=== PATIENT | male | born 1995 | race Two or more races ===

== ENCOUNTER 2017-09-20 07:45 | Emergency (ER) | payer MEDICAID ==
[~2017-09-20] VITALS: Ht 177.8 cm; Wt 106.1 kg
--- NOTE | 2017-09-20 08:05 | NUR ---
DR. LAM AT BEDSIDE FOR MSE.
[2017-09-20] MEDS ORDERED: IV NORMAL SALINE 1000 ML BAG IV ONE (08:15)
[2017-09-20] MEDS ORDERED: METOCLOPRAMIDE HCL 10 MG/2 ML VIAL IV ONE (08:15)
[2017-09-20] MEDS ORDERED: KETOROLAC TROMETHAMINE 15 MG INJ IV ONE (08:15)
--- NOTE | 2017-09-20 08:25 | NUR ---
BLOOD DRAWN AND URINE SAMPLE GIVEN TO LAB.
[2017-09-20] MEDS ORDERED: KETOROLAC TROMETHAMINE 15 MG INJ ONE (08:29)
[2017-09-20] MEDS ORDERED: METOCLOPRAMIDE HCL 10 MG/2 ML VIAL ONE (08:30)
[2017-09-20 08:32] LABS: BASOPHILS % (AUTO) 0.9 % (0.0-2.0); EOSINOPHILS # (AUTO) 0.2 K/uL (0.0-0.7); EOSINOPHILS % (AUTO) 3.7 % (0.0-7.0); HEMOGLOBIN 15.4 g/dL (12.5-16.3); LYMPHOCYTES # (AUTO) 1.6 K/uL (20.0-40.0); LYMPHOCYTES % (AUTO) 28.5 % (20.5-51.5); MEAN CORPUSCULAR HEMOGLOBIN 29.6 uug (23.8-33.4); MEAN CORPUSCULAR HGB CONC 34 g/dL (32.5-36.3); MEAN CORPUSCULAR VOLUME 86.6 fL (73.0-96.2); MONOCYTES # (AUTO) 0.6 K/uL (2.0-10.0); MONOCYTES % (AUTO) 10.2 % (0.0-11.0); NEUTROPHILS # (AUTO) 3.2 K/uL (1.8-8.9); NEUTROPHILS % (AUTO) 56.7 % (38.5-71.5); PLATELET COUNT (AUTO) 231 K/uL (152-348); WHITE BLOOD COUNT (AUTO) 5.6 K/uL (3.6-10.2)
[2017-09-20 08:34] LABS: *BILIRUBIN,URIN NEGATIVE (NEGATIVE); *BLOOD, URINE NEGATIVE (NEGATIVE); *CLARITY,URINE CLOUDY (CLEAR); *COLOR,URINE YELLOW (YELLOW); *KETONES,URINE NEGATIVE (NEGATIVE); *PROTEIN,URINE NEGATIVE (NEGATIVE); *UROBILINOGEN,URINE 0.2 E.U./dl (NORMAL); LEUKOCYTE ESTERASE ,URINE NEGATIVE (NEGATIVE); NITRITE, URINE NEGATIVE (NEGATIVE); PH,URINE 7.5 (5.0-8.0); UGLUCOSE NEGATIVE (NEGATIVE)
[2017-09-20 08:45] LABS: BILIRUBIN,DIRECT 0.1 mg/dL (0.0-0.2); BILIRUBIN,TOTAL 0.2 mg/dL (0.2-1.0); CREATININE 0.9 mg/dL (0.6-1.3); POTASSIUM 5.1 mmol/L (3.5-5.1); TOTAL PROTEIN, SERUM 8.1 g/dL (6.4-8.2)
--- NOTE | 2017-09-20 08:47 | NUR ---
PT RESTING COMFORTABLY. AWAITING TEST RESULTS.
[2017-09-20 08:49] LABS: BACTERIA,URINE MODERATE /HPF (NONE SEEN); URINE AMORPHOUS PHOSPHATES MANY /HPF; WBC,URINE 0-3 /HPF (0-3)
--- NOTE | 2017-09-20 09:39 | NUR ---
Patient discharged to home in stable conditon. Written and verbal after care instructions given. Patient verbalizes understanding of instructions.PT WALKS IN STADY GAIT, DENIES ABDOMINAL PAIN AND N/V. PT WIT MOTHER
[2017-09-20 09:40] VITALS: BP 122/79
== END 2017-09-20 09:45 | disposition home or self-care (01) ==
LOC: ER 07:45
DX: R11.2 Nausea with vomiting, unspecified (principal); R19.7 Diarrhea, unspecified; F17.210 Nicotine dependence, cigarettes, uncomplicated; F12.10 Cannabis abuse, uncomplicated
CPT/HCPCS: 36415; 70030-TC; 83690; 85025; A4663; J1885; J2765; J7030

== ENCOUNTER 2017-09-22 02:54 | Emergency (ER) | payer MEDICAID ==
[~2017-09-22] VITALS: Ht 177.8 cm; Wt 90.7 kg
--- NOTE | 2017-09-22 03:14 | NUR ---
DR. SAUCEDO AT BEDSIDE FOR MSE.
[2017-09-22] MEDS ORDERED: ONDANSETRON 4 MG/2 ML VIAL IV ONE (03:30)
[2017-09-22] MEDS ORDERED: ONDANSETRON 4 MG/2 ML VIAL ONE (03:30)
[2017-09-22] MEDS ORDERED: IV NORMAL SALINE 1000 ML BAG IV ONE (03:30)
[2017-09-22] MEDS ORDERED: KETOROLAC TROMETHAMINE 15 MG INJ IVP ONE (03:45)
[2017-09-22 03:55] LABS: BASOPHILS % (AUTO) 0.5 % (0.0-2.0); EOSINOPHILS % (AUTO) 0.4 % (0.0-7.0); HEMATOCRIT 44.1 % (36.7-47.1); HEMOGLOBIN 15.1 g/dL (12.5-16.3); LYMPHOCYTES # (AUTO) 2.2 K/uL (20.0-40.0); LYMPHOCYTES % (AUTO) 24.3 % (20.5-51.5); MEAN CORPUSCULAR HEMOGLOBIN 29.7 uug (23.8-33.4); MEAN CORPUSCULAR HGB CONC 34 g/dL (32.5-36.3); MEAN CORPUSCULAR VOLUME 86.8 fL (73.0-96.2); MONOCYTES # (AUTO) 0.8 K/uL (2.0-10.0); MONOCYTES % (AUTO) 8.7 % (0.0-11.0); NEUTROPHILS % (AUTO) 66.1 % (38.5-71.5); PLATELET COUNT (AUTO) 246 K/uL (152-348); RED BLOOD CELL COUNT(AUTO) 5.08 MIL/uL (4.06-5.63)
[2017-09-22 03:59] LABS: CREATININE 0.9 mg/dL (0.6-1.3); POTASSIUM 3.8 mmol/L (3.5-5.1)
[2017-09-22 04:01] LABS: ETHANOL < 3 MG/DL (0-0)
[2017-09-22 04:04] LABS: BILIRUBIN,DIRECT 0.1 mg/dL (0.0-0.2); BILIRUBIN,TOTAL 0.4 mg/dL (0.2-1.0); TOTAL PROTEIN, SERUM 8.4 g/dL (6.4-8.2)
[2017-09-22] MEDS ORDERED: KETOROLAC TROMETHAMINE 15 MG INJ ONE (04:10)
[2017-09-22 05:16] VITALS: BP 131/74
--- NOTE | 2017-09-22 05:16 | NUR ---
Patient discharged to home in stable conditon. Written and verbal after care instructions given. Patient verbalizes understanding of instructions. PATIENT LEFT WITH STABLE GAIT.
== END 2017-09-22 05:23 | disposition home or self-care (01) ==
LOC: ER 02:57
DX: R11.10 Vomiting, unspecified (principal); F17.210 Nicotine dependence, cigarettes, uncomplicated; F12.10 Cannabis abuse, uncomplicated
CPT/HCPCS: 36415; 83690; 85025; A4663; G0480; J1885; J2405; J7030

== ENCOUNTER 2017-09-30 15:21 | Emergency (ER) | payer MEDICAID ==
[~2017-09-30] VITALS: Ht 177.8 cm; Wt 104.3 kg
[2017-09-30] MEDS ORDERED: PANT40TA2 PO (15:30)
[2017-09-30] MEDS ORDERED: METO-295 PO (15:30)
--- NOTE | 2017-09-30 15:38 | NUR ---
PATIENT C/O N/V. HE IS A/A/O X3 IN NO DISTRESS. NO ACTIVE VOMITING AT THIS TIME.
[2017-09-30] MEDS ORDERED: IV NORMAL SALINE 1000 ML BAG IV ONE (15:45)
[2017-09-30 16:08] LABS: BASOPHILS % (AUTO) 0.5 % (0.0-2.0); EOSINOPHILS # (AUTO) 0.1 K/uL (0.0-0.7); EOSINOPHILS % (AUTO) 1.1 % (0.0-7.0); HEMATOCRIT 45.2 % (36.7-47.1); HEMOGLOBIN 15.5 g/dL (12.5-16.3); LYMPHOCYTES # (AUTO) 2.3 K/uL (20.0-40.0); LYMPHOCYTES % (AUTO) 31.2 % (20.5-51.5); MEAN CORPUSCULAR HEMOGLOBIN 29.7 uug (23.8-33.4); MEAN CORPUSCULAR HGB CONC 34 g/dL (32.5-36.3); MEAN CORPUSCULAR VOLUME 86.7 fL (73.0-96.2); MONOCYTES # (AUTO) 0.7 K/uL (2.0-10.0); MONOCYTES % (AUTO) 9.6 % (0.0-11.0); NEUTROPHILS # (AUTO) 4.2 K/uL (1.8-8.9); NEUTROPHILS % (AUTO) 57.6 % (38.5-71.5); PLATELET COUNT (AUTO) 243 K/uL (152-348); RED BLOOD CELL COUNT(AUTO) 5.21 MIL/uL (4.06-5.63); WHITE BLOOD COUNT (AUTO) 7.2 K/uL (3.6-10.2)
--- NOTE | 2017-09-30 16:20 | NUR ---
AWAITING TEST RESULTS. PATIENT IS AWAKE AND ALERT WITH NO NEW COMPLAINTS.
[2017-09-30 16:21] LABS: POTASSIUM 3.7 mmol/L (3.5-5.1)
[2017-09-30 16:27] LABS: BILIRUBIN,DIRECT 0.1 mg/dL (0.0-0.2); BILIRUBIN,TOTAL 0.4 mg/dL (0.2-1.0); TOTAL PROTEIN, SERUM 8.1 g/dL (6.4-8.2)
--- NOTE | 2017-09-30 17:26 | NUR ---
IV DC'D, CATHETER TIP INTACT, PRESSURE APPLIED ,DRESSING APPLIED. DC ,RX AND FOLLOW UP INSTRUCTIONS GIVEN AND EXPLAINED TO PATIENT WHO STATES HE UNDERSTANDS ALL INSTRUCTIONS.
[2017-09-30 17:28] VITALS: BP 121/80
== END 2017-09-30 17:29 | disposition home or self-care (01) ==
LOC: ER 15:21
DX: R11.2 Nausea with vomiting, unspecified (principal); R19.7 Diarrhea, unspecified; F17.210 Nicotine dependence, cigarettes, uncomplicated; F12.10 Cannabis abuse, uncomplicated; Z79.899 Other long term (current) drug therapy
CPT/HCPCS: 36415; 71045; 74176; 80048; 80076; 83605; 83690; 84484; 85025; 85730; 87040 ×2; 96360; 96361; 99285; A4663; J7030; 70030-TC

== ENCOUNTER 2017-10-18 11:56 | Emergency (ER) | payer MEDICAID ==
[~2017-10-18] VITALS: Ht 177.8 cm; Wt 106.1 kg
[~2017-10-18 11:56] MED LIST: METO-295 PO; PANT40TA2 PO
--- NOTE | 2017-10-18 12:23 | NUR ---
PT IS IN ROOM #2A. DR DUFF EVALUATED THE PT.
[2017-10-18] MEDS ORDERED: ONDANSETRON IV *ER 4 MG/2 ML VIAL IV ONE (12:27)
[2017-10-18] MEDS ORDERED: IV NS 1000 ML 1,000 ML IV ONE (12:30)
[2017-10-18] MEDS ORDERED: ONDANSETRON 4 MG/2 ML VIAL ONE (12:41)
[2017-10-18 12:44] LABS: BASOPHILS % (AUTO) 0.4 % (0.0-2.0); EOSINOPHILS # (AUTO) 0.2 K/uL (0.0-0.7); EOSINOPHILS % (AUTO) 3.1 % (0.0-7.0); HEMATOCRIT 45.7 % (36.7-47.1); HEMOGLOBIN 15.7 g/dL (12.5-16.3); LYMPHOCYTES % (AUTO) 27.6 % (20.5-51.5); MEAN CORPUSCULAR HEMOGLOBIN 29.5 uug (23.8-33.4); MEAN CORPUSCULAR HGB CONC 34 g/dL (32.5-36.3); MEAN CORPUSCULAR VOLUME 86.1 fL (73.0-96.2); MONOCYTES # (AUTO) 0.8 K/uL (2.0-10.0); MONOCYTES % (AUTO) 10.9 % (0.0-11.0); NEUTROPHILS # (AUTO) 4.1 K/uL (1.8-8.9); PLATELET COUNT (AUTO) 216 K/uL (152-348); RED BLOOD CELL COUNT(AUTO) 5.31 MIL/uL (4.06-5.63); WHITE BLOOD COUNT (AUTO) 7.1 K/uL (3.6-10.2)
[2017-10-18 12:50] LABS: CARBON DIOXIDE 28 mmol/L (21-32); CHLORIDE 104 mmol/L (98-107); CREATININE 0.7 mg/dL (0.6-1.3); GLUCOSE 96 mg/dL (74-106); POTASSIUM 4.1 mmol/L (3.5-5.1); UREA NITROGEN, BLOOD 17 mg/dL (7-18)
[2017-10-18 12:56] LABS: ALANINE AMINOTRANSFERASE 360 U/L (16-63); ALKALINE PHOSPHATASE 73 U/L (50-136); ASPARTATE AMINOTRANSFERASE 155 U/L (15-37); BILIRUBIN,TOTAL 0.6 mg/dL (0.2-1.0); LIPASE 194 U/L (73-393); TOTAL PROTEIN, SERUM 8.5 g/dL (6.4-8.2)
--- NOTE | 2017-10-18 14:34 | NUR ---
PT WAS D/C MAUREEN. D/C INSTRUCTIONS GIVEN TO THE PT.
[2017-10-18 14:35] VITALS: BP 131/79
== END 2017-10-18 15:05 | disposition home or self-care (01) ==
LOC: ER 11:58
DX: F12.188 Cannabis abuse with other cannabis-induced disorder (principal); R94.5 Abnormal results of liver function studies; B19.20 Unspecified viral hepatitis C without hepatic coma; F17.210 Nicotine dependence, cigarettes, uncomplicated; F12.10 Cannabis abuse, uncomplicated; Z79.899 Other long term (current) drug therapy
CPT/HCPCS: 36415; 83690; 85025; A4663; J2405

== ENCOUNTER 2017-10-29 10:55 | Emergency (ER) | payer MEDICAID ==
[~2017-10-29] VITALS: Ht 177.8 cm; Wt 106.1 kg
[2017-10-29] MEDS ORDERED: ONDA4TAB5 PO (11:15)
[2017-10-29 12:02] LABS: *BLOOD, URINE NEGATIVE (NEGATIVE); *KETONES,URINE TRACE (NEGATIVE); *PROTEIN,URINE TRACE (NEGATIVE); LEUKOCYTE ESTERASE ,URINE NEGATIVE (NEGATIVE); NITRITE, URINE NEGATIVE (NEGATIVE); PH,URINE 6.5 (5.0-8.0); UGLUCOSE NEGATIVE (NEGATIVE)
[2017-10-29 12:21] LABS: *BILIRUBIN,URIN 1+ (NEGATIVE); *CLARITY,URINE HAZY (CLEAR); *COLOR,URINE DARK YELLOW (YELLOW)
[2017-10-29 12:24] LABS: BACTERIA,URINE NONE SEEN /HPF (NONE SEEN); MUCUS,URINE MANY /LPF (0-FEW); RBC,URINE 0-3 /HPF (0-3); SQUAMOUS EPITHELIAL CELL,UR FEW /HPF (NONE SEEN); WBC,URINE 0-3 /HPF (0-3)
[2017-10-29 12:28] LABS: BASOPHILS % (AUTO) 0.3 % (0.0-2.0); EOSINOPHILS # (AUTO) 0.1 K/uL (0.0-0.7)
[2017-10-29 12:32] LABS: BILIRUBIN,DIRECT 0.1 mg/dL (0.0-0.2); BILIRUBIN,TOTAL 0.4 mg/dL (0.2-1.0); CREATININE 0.9 mg/dL (0.6-1.3); POTASSIUM 3.9 mmol/L (3.5-5.1)
[2017-10-29 12:37] LABS: EOSINOPHILS % (AUTO) 1.2 % (0.0-7.0); HEMATOCRIT 45.6 % (36.7-47.1); HEMOGLOBIN 15.8 g/dL (12.5-16.3); LYMPHOCYTES # (AUTO) 1.6 K/uL (20.0-40.0); LYMPHOCYTES % (AUTO) 25.4 % (20.5-51.5); MEAN CORPUSCULAR HGB CONC 35 g/dL (32.5-36.3); MEAN CORPUSCULAR VOLUME 86.4 fL (73.0-96.2); MONOCYTES # (AUTO) 0.6 K/uL (2.0-10.0); MONOCYTES % (AUTO) 8.8 % (0.0-11.0); NEUTROPHILS # (AUTO) 4.2 K/uL (1.8-8.9); NEUTROPHILS % (AUTO) 64.3 % (38.5-71.5); PLATELET COUNT (AUTO) 203 K/uL (152-348); RED BLOOD CELL COUNT(AUTO) 5.28 MIL/uL (4.06-5.63); WHITE BLOOD COUNT (AUTO) 6.5 K/uL (3.6-10.2)
--- NOTE | 2017-10-29 12:48 | NUR ---
Patient discharged to home in stable conditon. Written and verbal after care instructions given. Patient verbalizes understanding of instructions.
[2017-10-31 17:08] LABS: HEPATITIS A AB, TOTAL Positive (Negative); HEPATITIS B SURFACE AB Non Reactive (.); HEPATITIS B SURFACE AG Negative (Negative)
== END 2017-10-29 12:51 | disposition home or self-care (01) ==
LOC: ER 10:58
DX: B19.20 Unspecified viral hepatitis C without hepatic coma (principal); F17.200 Nicotine dependence, unspecified, uncomplicated; R19.7 Diarrhea, unspecified; R11.2 Nausea with vomiting, unspecified
CPT/HCPCS: 36415; 83690; 85025; 85730; 86706; 86708; 86803; 87340; A4663

== ENCOUNTER 2017-11-23 06:25 | Emergency (ER) | payer MEDICAID ==
[~2017-11-23] VITALS: Ht 177.8 cm; Wt 105.7 kg
[~2017-11-23 06:25] MED LIST changes: -METO-295 PO; +ONDA4TAB5 PO; -PANT40TA2 PO
[2017-11-23] MEDS ORDERED: PANTOPRAZOLE SODIUM IV 40 MG in IV DEXTROSE 5% 100 ML IV ONE (07:24)
[2017-11-23] MEDS ORDERED: IV NS 1000 ML 1,000 ML IV ONE (07:30)
[2017-11-23] MEDS ORDERED: ONDANSETRON IV *ER 4 MG/2 ML VIAL IV ONE (07:30)
[2017-11-23] MEDS ORDERED: ONDANSETRON 4 MG/2 ML VIAL ONE (07:42)
[2017-11-23] MEDS ORDERED: PANTOPRAZOLE SODIUM 40 MG VIAL ONE (07:42)
[2017-11-23 07:51] LABS: BASOPHILS % (AUTO) 0.6 % (0.0-2.0); EOSINOPHILS # (AUTO) 0.2 K/uL (0.0-0.7); EOSINOPHILS % (AUTO) 4.6 % (0.0-7.0); HEMATOCRIT 44.9 % (36.7-47.1); HEMOGLOBIN 15.9 g/dL (12.5-16.3); LYMPHOCYTES # (AUTO) 1.6 K/uL (20.0-40.0); LYMPHOCYTES % (AUTO) 30.1 % (20.5-51.5); MEAN CORPUSCULAR HEMOGLOBIN 30.4 uug (23.8-33.4); MEAN CORPUSCULAR HGB CONC 35 g/dL (32.5-36.3); MEAN CORPUSCULAR VOLUME 85.9 fL (73.0-96.2); MONOCYTES # (AUTO) 0.7 K/uL (2.0-10.0); MONOCYTES % (AUTO) 12.6 % (0.0-11.0); NEUTROPHILS # (AUTO) 2.7 K/uL (1.8-8.9); NEUTROPHILS % (AUTO) 52.1 % (38.5-71.5); PLATELET COUNT (AUTO) 183 K/uL (152-348); RED BLOOD CELL COUNT(AUTO) 5.23 MIL/uL (4.06-5.63); WHITE BLOOD COUNT (AUTO) 5.2 K/uL (3.6-10.2)
[2017-11-23 07:58] LABS: CREATININE 0.9 mg/dL (0.6-1.3); POTASSIUM 4.4 mmol/L (3.5-5.1)
[2017-11-23 08:03] LABS: BILIRUBIN,TOTAL 0.3 mg/dL (0.2-1.0)
--- NOTE | 2017-11-23 09:14 | NUR ---
Patient discharged to home in stable conditon. Written and verbal after care instructions given. Patient verbalizes understanding of instructions.pt walks in steady gait, deneis any n/v at this time.
[2017-11-23 09:16] VITALS: BP 131/71
== END 2017-11-23 09:17 | disposition home or self-care (01) ==
LOC: ER 06:36
DX: R11.2 Nausea with vomiting, unspecified (principal); R19.7 Diarrhea, unspecified; F17.210 Nicotine dependence, cigarettes, uncomplicated; F12.10 Cannabis abuse, uncomplicated; Z79.899 Other long term (current) drug therapy
CPT/HCPCS: 36415; 74022; 80053; 83690; 85025; 96365; 96375; 99285; A4663; C9113; J2405; J7030

== ENCOUNTER 2018-01-16 07:17 | Emergency (ER) | payer MEDICAID ==
[~2018-01-16] VITALS: Ht 177.8 cm; Wt 105.2 kg
--- NOTE | 2018-01-16 07:27 | NUR ---
at bedside to examine patient.
[2018-01-16 07:38] VITALS: BP 130/74
== END 2018-01-16 07:39 | disposition home or self-care (01) ==
LOC: ER 07:19
DX: R11.2 Nausea with vomiting, unspecified (principal); R19.7 Diarrhea, unspecified; F17.200 Nicotine dependence, unspecified, uncomplicated
CPT/HCPCS: 99283; A4663

== ENCOUNTER 2018-01-30 06:44 | Emergency (ER) | payer MEDICAID ==
[~2018-01-30] VITALS: Ht 177.8 cm; Wt 106.1 kg
--- NOTE | 2018-01-30 07:13 | NUR ---
Report given to Jackie TSAI.
--- NOTE | 2018-01-30 07:32 | NUR ---
Patient is resting comfortably in bed with eyes closed,NAD noted.
--- NOTE | 2018-01-30 07:37 | NUR ---
DESMOND BETTS AT THE BEDSIDE FOR MSE.
[2018-01-30] MEDS ORDERED: IV NORMAL SALINE 1000 ML BAG IV ONE (08:00)
[2018-01-30] MEDS ORDERED: FAMOTIDINE. 20 MG/2 ML VIAL IV ONE ×2 (08:00→08:10)
[2018-01-30] MEDS ORDERED: ONDANSETRON 4 MG/2 ML VIAL IV ONE (08:00)
[2018-01-30] MEDS ORDERED: ONDANSETRON 4 MG/2 ML VIAL ONE (08:09)
[2018-01-30 08:20] LABS: CREATININE 0.8 mg/dL (0.6-1.3); POTASSIUM 4.9 mmol/L (3.5-5.1)
[2018-01-30 08:25] LABS: BILIRUBIN,DIRECT 0.1 mg/dL (0.0-0.2); BILIRUBIN,TOTAL 0.4 mg/dL (0.2-1.0); TOTAL PROTEIN, SERUM 8.5 g/dL (6.4-8.2)
[2018-01-30 08:33] LABS: BASOPHILS % (AUTO) 0.4 % (0.0-2.0); EOSINOPHILS # (AUTO) 0.1 K/uL (0.0-0.7); EOSINOPHILS % (AUTO) 2.1 % (0.0-7.0); HEMATOCRIT 48.8 % (36.7-47.1); HEMOGLOBIN 16.6 g/dL (12.5-16.3); LYMPHOCYTES # (AUTO) 1.5 K/uL (20.0-40.0); LYMPHOCYTES % (AUTO) 26.2 % (20.5-51.5); MEAN CORPUSCULAR HEMOGLOBIN 29.3 uug (23.8-33.4); MEAN CORPUSCULAR HGB CONC 34 g/dL (32.5-36.3); MONOCYTES # (AUTO) 0.4 K/uL (2.0-10.0); MONOCYTES % (AUTO) 7.9 % (0.0-11.0); NEUTROPHILS # (AUTO) 3.6 K/uL (1.8-8.9); NEUTROPHILS % (AUTO) 63.4 % (38.5-71.5); PLATELET COUNT (AUTO) 226 K/uL (152-348); RED BLOOD CELL COUNT(AUTO) 5.67 MIL/uL (4.06-5.63); WHITE BLOOD COUNT (AUTO) 5.6 K/uL (3.6-10.2)
[2018-01-30 09:35] LABS: *BILIRUBIN,URIN NEGATIVE (NEGATIVE); *BLOOD, URINE NEGATIVE (NEGATIVE); *CLARITY,URINE CLEAR (CLEAR); *COLOR,URINE YELLOW (YELLOW); *KETONES,URINE NEGATIVE (NEGATIVE); *PROTEIN,URINE NEGATIVE (NEGATIVE); *UROBILINOGEN,URINE 0.2 E.U./dl (NORMAL); LEUKOCYTE ESTERASE ,URINE NEGATIVE (NEGATIVE); NITRITE, URINE NEGATIVE (NEGATIVE); PH,URINE 7.5 (5.0-8.0); UGLUCOSE NEGATIVE (NEGATIVE)
[2018-01-30 09:44] LABS: BACTERIA,URINE NONE SEEN /HPF (NONE SEEN); MUCUS,URINE FEW /LPF (0-FEW); RBC,URINE 0-3 /HPF (0-3); SQUAMOUS EPITHELIAL CELL,UR NONE SEEN /HPF (NONE SEEN); WBC,URINE 0-3 /HPF (0-3)
[2018-01-30] MEDS ORDERED: PROCHLORPERAZINE EDISYLATE 10 MG/2 ML VIAL IV ONE (09:45)
[2018-01-30] MEDS ORDERED: PROCHLORPERAZINE EDISYLATE 10 MG/2 ML VIAL ONE (09:48)
--- NOTE | 2018-01-30 09:52 | NUR ---
Pt states feeling better and his nausea is gone.
[2018-01-30 09:53] VITALS: BP 121/69
--- NOTE | 2018-01-30 09:55 | NUR ---
IV removed. Catheter intact and site benign. Pressure and 4x4 gauze applied to site. No bleeding noted.
--- NOTE | 2018-01-30 09:55 | NUR ---
Patient discharged to home in stable conditon. Written and verbal after care instructions given. Patient verbalizes understanding of instructions.
== END 2018-01-30 09:56 | disposition home or self-care (01) ==
LOC: ER 06:47
DX: R11.2 Nausea with vomiting, unspecified (principal); R10.84 Generalized abdominal pain; F17.200 Nicotine dependence, unspecified, uncomplicated; F12.10 Cannabis abuse, uncomplicated
CPT/HCPCS: 36415; 80048; 80076; 81001; 83690; 85025; 96361; 96374; 96375; 99284; A4663; J0780; J2405; J3490; J7030

== ENCOUNTER 2018-02-03 07:10 | Emergency (ER) | payer MEDICAID ==
[~2018-02-03] VITALS: Ht 172.7 cm; Wt 101.6 kg
[2018-02-03] MEDS ORDERED: IV NORMAL SALINE 500 ML BAG IV ONE (07:30)
[2018-02-03] MEDS ORDERED: ONDANSETRON 4 MG/2 ML VIAL IV ONE (07:30)
[2018-02-03 07:38] LABS: BASOPHILS % (AUTO) 0.5 % (0.0-2.0); EOSINOPHILS # (AUTO) 0.1 K/uL (0.0-0.7); HEMATOCRIT 46.6 % (36.7-47.1); HEMOGLOBIN 16.1 g/dL (12.5-16.3); LYMPHOCYTES # (AUTO) 1.6 K/uL (20.0-40.0); MEAN CORPUSCULAR HEMOGLOBIN 30.1 uug (23.8-33.4); MEAN CORPUSCULAR HGB CONC 35 g/dL (32.5-36.3); MEAN CORPUSCULAR VOLUME 86.9 fL (73.0-96.2); MONOCYTES # (AUTO) 0.7 K/uL (2.0-10.0); MONOCYTES % (AUTO) 11.1 % (0.0-11.0); NEUTROPHILS # (AUTO) 3.8 K/uL (1.8-8.9); NEUTROPHILS % (AUTO) 61.4 % (38.5-71.5); PLATELET COUNT (AUTO) 212 K/uL (152-348); RED BLOOD CELL COUNT(AUTO) 5.36 MIL/uL (4.06-5.63); WHITE BLOOD COUNT (AUTO) 6.2 K/uL (3.6-10.2)
[2018-02-03] MEDS ORDERED: ONDANSETRON 4 MG/2 ML VIAL ONE (07:40)
--- NOTE | 2018-02-03 07:42 | NUR ---
iv placed, lavbs drawn and sent, 500ml 0.9ns bolus infusing, zofran admin. pt positioned for comfort.
[2018-02-03 07:46] LABS: CREATININE 0.9 mg/dL (0.6-1.3); POTASSIUM 4.3 mmol/L (3.5-5.1)
[2018-02-03 07:52] LABS: BILIRUBIN,DIRECT 0.1 mg/dL (0.0-0.2); BILIRUBIN,TOTAL 0.5 mg/dL (0.2-1.0); TOTAL PROTEIN, SERUM 8.2 g/dL (6.4-8.2)
[2018-02-03] MEDS ORDERED: METOCLOPRAMIDE HCL 10 MG/2 ML VIAL ONE (08:29)
[2018-02-03] MEDS ORDERED: METOCLOPRAMIDE HCL 10 MG/2 ML VIAL IV ONE (08:30)
[2018-02-03] MEDS ORDERED: ACETAMINOPHEN 325 MG TABLET PO ONE (09:00)
[2018-02-03] MEDS ORDERED: LORAZEPAM 2 MG/1 ML VIAL IV ONE (09:00)
[2018-02-03] MEDS ORDERED: ACETAMINOPHEN 325 MG TABLET ONE (09:03)
[2018-02-03] MEDS ORDERED: LORAZEPAM 2 MG/1 ML VIAL ONE (09:06)
--- NOTE | 2018-02-03 09:17 | NUR ---
MSE COMPLETED, PT TOLERATED ORAL FLUIDS, IV D/C'D INTACT, ACI/RX X2 GIVEN. PT AMBULATED W/O DIFF/TOOK ALL BELONGINGS.
[2018-02-03 09:19] VITALS: BP 132/68
== END 2018-02-03 09:19 | disposition home or self-care (01) ==
LOC: ER 07:10
DX: R10.9 Unspecified abdominal pain (principal); K92.0 Hematemesis; R19.7 Diarrhea, unspecified; F41.9 Anxiety disorder, unspecified; F17.200 Nicotine dependence, unspecified, uncomplicated
CPT/HCPCS: 36415; 83690; 85025; A4663; J2060; J2405; J2765; J7040